=== PATIENT | female | born 1965 | race African-American/Black ===

== ENCOUNTER → 2021-06-25 | Day surgery (SDC) | payer MEDICARE, OTHER ==
[2021-06-21 12:26] LABS: BASOPHILS % 0.5 % (0.0-1.0); EOSINOPHILS # (AUTO) 0.4 (0.0-0.4); EOSINOPHILS % 4.7 % (0.0-6.0); HEMATOCRIT 42.4 % (34.2-44.1); LYMPHOCYTES # (AUTO) 2.3 (1.0-3.2); LYMPHOCYTES % 27.8 % (18.0-39.1); MEAN CORPUSCULAR HEMOGLOBIN 31.3 pg (28-32); MEAN CORPUSCULAR VOLUME 94.9 fL (81-99); MONOCYTES # (AUTO) 0.7 (0.2-0.8); MONOCYTES % 9.1 % (4.4-11.3); NEUTROPHILS # (AUTO) 4.7 (2.1-6.9); NEUTROPHILS % 57.4 % (38.7-80.0); PLATELET COUNT 253 x10e3/uL (140-360); RED BLOOD COUNT 4.47 x10e6/uL (3.6-5.1); RED CELL DISTRIBUTION WIDTH 12.1 % (11.7-14.4)
[2021-06-21 12:44] LABS: ANION GAP 16.5 mmol/L (8-16); CALCIUM 9.4 mg/dL (8.4-10.2); CREATININE, SERUM 1.01 mg/dL (0.57-1.11); POTASSIUM 4.5 mmol/L (3.5-5.1)
[~2021-06-25] MED LIST: ALBUTEROL0.63 MG/3 INH; AMLODIPINE BESY10 MG PO; ASPIRIN81 MG PO; BREZTRI AEROS10.7 GM INH; CARVEDILOL3.125 MG PO; CETIRIZINE HCL10 MG PO; CRESTOR10 MG PO; CYCLOBENZAPRINE10 MG PO; ENALAPRIL MALEA20 MG PO; FENTANYL CITRATE/PF 100MCG/2 ML INJ ONE; HUMALOG100 UNIT/3 SC; LANTUS 3ML100 UNITS/ SC; METFORMIN HCL500 MG PO; MIDAZOLAM HCL 2 MG/2 ML VIAL ONE; MONTELUKAST SOD10 MG PO; NEURONTIN300 MG PO; OMEPRAZOLE40 MG PO; POVIDONE IODINE 0.05% 0.05 % ML PO ONE; PROPOFOL IV EMULSION 10 MG/ML 20 ML VIAL ONE; SERTRALINE HCL100 MG PO
[2021-06-25 10:50] VITALS: BP 133/81
== END | disposition home or self-care (01) ==
LOC: OR 07:02
PROVIDERS: ATTEND Internal Medicine Gastroenterology
DX: Z12.11 Encounter for screening for malignant neoplasm of colon (principal); D12.0 Benign neoplasm of cecum; D12.2 Benign neoplasm of ascending colon; D12.5 Benign neoplasm of sigmoid colon; K29.50 Unspecified chronic gastritis without bleeding; K22.2 Esophageal obstruction; K29.80 Duodenitis without bleeding; K57.30 Diverticulosis of large intestine without perforation or abscess without bleeding; K64.8 Other hemorrhoids; K44.9 Diaphragmatic hernia without obstruction or gangrene; K59.00 Constipation, unspecified; J44.9 Chronic obstructive pulmonary disease, unspecified; E78.5 Hyperlipidemia, unspecified; I10 Essential (primary) hypertension; E11.9 Type 2 diabetes mellitus without complications; I25.10 Atherosclerotic heart disease of native coronary artery without angina pectoris; Z88.6 Allergy status to analgesic agent; Z88.8 Allergy status to other drugs, medicaments and biological substances; Z01.812 Encounter for preprocedural laboratory examination; Z20.822 Contact with and (suspected) exposure to COVID-19; Z01.810 Encounter for preprocedural cardiovascular examination; Z79.4 Long term (current) use of insulin; Z79.1 Long term (current) use of non-steroidal anti-inflammatories (NSAID); Z79.82 Long term (current) use of aspirin; Z79.899 Other long term (current) drug therapy; Z85.3 Personal history of malignant neoplasm of breast; Z87.891 Personal history of nicotine dependence; Z86.19 Personal history of other infectious and parasitic diseases; Z86.16 Personal history of COVID-19
CPT/HCPCS: 36415 ×2; 43239; 43249; 45385; 80048; 82948; 85025; 88305; 88312; 93005; C1726; J2704; U0002; 43233; 45378; J2250; J3010